=== PATIENT | male | born 1970 | race Caucasian/White ===

== ENCOUNTER 2018-07-23 14:08 | Emergency (ER) | payer OTHER ==
[2018-07-23 14:40] VITALS: BP 113/70; PULSE 70; TEMP 98.3; BMI 37.5
[2018-07-23] MEDS ORDERED: KETOROLAC TROMETHAMINE 30 MG/1 ML VIAL IM ONE (14:55)
[2018-07-23] MEDS ORDERED: KETOROLAC TROMETHAMINE 30 MG/1 ML VIAL ONE (15:03)
--- NOTE | 2018-07-23 15:04 | PDOC ---
History of Present Illness - General Chief Complaint: Pain Stated Complaint: RT FOOT PAIN Time Seen by Provider: 07/23/18 14:48 History Source: Patient Exam Limitations: Clinical Condition - History of Present Illness Initial Comments: 07/23/18 14:58 Patient with history of diabetes present with complaint of 6 months history of persistent pain to right Achilles tendon which is worse with ambulation. Patient reported he is being seen by podiatry for pain with use of NSAIDs back pain keep coming back and has been persistent. Patient denies any imaging done for symptoms. Patient denies any trauma or injuries to ankle or leg. Timing/Duration: other (6 months) Past History - Past Medical History Allergies/Adverse Reactions: Allergies Allergy/AdvReac Type Severity Reaction Status Date / Time cephalexin Allergy Verified 07/23/18 14:36 Home Medications: Ambulatory Orders Aripiprazole [Abilify] 5 mg PO DAILY 11/21/17 Armodafinil 150 mg PO DAILY 11/21/17 Bupropion HCl [Bupropion HCl Sr] 100 mg PO BID 11/21/17 Bupropion HCl [Bupropion Xl] 150 mg PO DAILY 11/21/17 Citalopram Hydrobromide [Citalopram HBr] 20 mg PO DAILY 11/21/17 Fenofibrate 200 mg PO AC 11/21/17 Insulin Glargine,Hum.rec.anlog [Basaglar Kwikpen U-100] 10 unit SQ HS 11/21/17 Naproxen Sodium 550 mg PO BID 11/21/17 metFORMIN HCL [Metformin HCl] 1,000 mg PO AC 11/21/17 Naproxen 500 mg PO BID PRN #30 tablet 07/23/18 COPD: No Diabetes: Yes - Suicide/Smoking/Psychosocial Hx Smoking History: Unknown if ever smoked Hx Alcohol Use: No Drug/Substance Use Hx: No Review of Systems - Review of Systems Able to Perform ROS?: Yes Is the patient limited Korean proficient: No Constitutional: No: Weakness HEENTM: No: Symptoms Reported Respiratory: No: Symptoms reported Cardiac (ROS): No: Symptoms Reported Musculoskeletal: Yes: See HPI, Joint Pain (posterior right ankle), Muscle Pain ( achilles tendon). No: Muscle Weakness, Joint Stiffness Neurological: No: Numbness, Paresthesia, Tingling, Weakness All Other Systems: Reviewed and Negative *Physical Exam - Vital Signs Last Vital Signs Temp Pulse Resp BP Pulse Ox 98.3 F 70 18 113/70 98 07/23/18 14:38 07/23/18 14:38 07/23/18 14:38 07/23/18 14:38 07/23/18 14:38 - Physical Exam Comments: 07/23/18 14:59 GENERAL: Well developed, well nourished. Awake and alert. No acute distress. CARDIOVASCULAR: Regular rate and rhythm. No murmurs, rubs, or gallops. PULMONARY: No evidence of respiratory distress. Lungs clear to auscultation bilaterally. No wheezing, rales or rhonchi. ABDOMINAL: Soft. Non-tender. Non-distended. No rebound or guarding. No organomegaly. Normoactive bowel sounds MUSCULOSKELETAL : Moderate point tenderness to posterior Achilles tendon of right ankle. Negative Olsen tests of right achilles. No bony deformities EXTREMITIES: No cyanosis. No clubbing. No edema. No calf tenderness. SKIN: Warm and dry. Normal capillary refill. No rashes. No jaundice. NEUROLOGICAL: Alert, awake, appropriate. No motor deficits in the lower extremities. Gait is normal without ataxia. PSYCHIATRIC: Cooperative. Good eye contact. Appropriate mood and affect. General Appearance: Yes: Nourished, Appropriately Dressed. No: Apparent Distress Moderate Sedation - Procedure Monitoring Vital Signs: Procedure Monitoring Vital Signs Temperature 98.3 F 07/23/18 14:38 Pulse Rate 70 07/23/18 14:38 Respiratory Rate 18 07/23/18 14:38 Blood Pressure 113/70 07/23/18 14:38 O2 Sat by Pulse Oximetry (%) 98 07/23/18 14:38 ED Treatment Course - RADIOLOGY Radiology Studies Ordered: Category Date Time Status ANKLE & FOOT-RIGHT* [RAD] Stat Radiology 07/23/18 14:54 Ordered Medical Decision Making - Medical Decision Making 07/23/18 15:02 Patient with history of diabetes present with complaint of since months with history of persistent right increased pain without trauma or injury. Exam significant for moderate point tenderness to right posterior Achilles tendon with negative Olsen's test. Symptoms likely tendon strain versus ruptured Achilles tendon. Later less likely due to negative Olsen's test of right Achilles tendon. X-ray of right ankle ordered. Patient be discharged home on NSAIDs with advised to rest ankle with orthopedist follow-up for possible MRI if negative x-ray. 07/23/18 15:18 X-ray of right ankle and foot shows small your spur and calcification of Achilles tendon insertion site. Patient is stable for discharge with postop boots and orthopedics follow-up with naproxen as needed for pain. *DC/Admit/Observation/Transfer Diagnosis at time of Disposition: Heel spur Qualifiers: Laterality: right Qualified Code(s): M77.31 - Calcaneal spur, right foot Achilles tendinitis Qualifiers: Laterality: right Qualified Code(s): M76.61 - Achilles tendinitis, right leg - Discharge Dispostion Disposition: HOME Condition at time of disposition: Stable Decision to Admit order: No - Prescriptions Prescriptions: Naproxen 500 mg PO BID PRN #30 tablet PRN Reason: pain - Referrals Referrals: Gonzalez Patel DO [Staff Physician] - - Patient Instructions Printed Discharge Instructions: DI for Achilles Tendinopathy Additional Instructions: Take prescribed naproxen as needed for pain. Follow-up referred orthopedics as soon as possible. Call today to make a follow-up on the with orthopedics for heel spur and calcification of the Achilles tendon insertion site. - Post Discharge Activity
== END 2018-07-23 15:41 | disposition home or self-care (01) ==
LOC: JERFT 14:08
PROC: 3E0233Z Introduction of Anti-inflammatory into Muscle, Percutaneous Approach (ICD-10-PCS; principal; 2018-07-23)
DX: M76.61 Achilles tendinitis, right leg (principal); M77.31 Calcaneal spur, right foot; E11.9 Type 2 diabetes mellitus without complications; Z79.4 Long term (current) use of insulin
CPT/HCPCS: 73610-TC-RT-FY; 73630-TC-RT-FY; 99281-25

== ENCOUNTER 2019-04-19 18:15 | Emergency (ER) | payer OTHER ==
--- NOTE | 2019-04-19 18:23 | PDOC ---
Rapid Medical Evaluation Time Seen by Provider: 04/19/19 18:21 Medical Evaluation: Allergies Allergy/AdvReac Type Severity Reaction Status Date / Time cephalexin Allergy Verified 07/23/18 14:36 04/19/19 18:23 I have performed a brief in-person evaluation of this patient. The patient presents with a chief complaint of: knee swelling Pertinent physical exam findings:stable and in NAD, non-focal I have ordered the following: provider to determine The patient will proceed to the ED for further evaluation.
[2019-04-19 18:24] VITALS: BP 135/81; PULSE 83; TEMP 98; BMI 36.5
--- NOTE | 2019-04-19 19:55 | PDOC ---
History of Present Illness - General Chief Complaint: Pain Stated Complaint: KNEE PAIN Time Seen by Provider: 04/19/19 18:21 History Source: Patient - History of Present Illness Initial Comments: 04/19/19 19:50 48 year old male s/p b/l quad tendon repair 09/2018 c/o knees buckling and fell today after being seen at [facility] ER for Knee pain. Right knee pain worse than left. patient report xray done at [facility] prior to the fall showed joint effusion, arthiritic changes. PMHX: diabetes, sleep apnea, hypertension, depression Ortho: Dr. Patel PCP: Maryan Crawford Past History - Past Medical History Allergies/Adverse Reactions: Allergies Allergy/AdvReac Type Severity Reaction Status Date / Time cephalexin Allergy Verified 04/19/19 18:24 Home Medications: Ambulatory Orders Aripiprazole [Abilify] 5 mg PO DAILY 11/21/17 Armodafinil 150 mg PO DAILY 11/21/17 Bupropion HCl [Bupropion HCl Sr] 100 mg PO BID 11/21/17 Bupropion HCl [Bupropion Xl] 150 mg PO DAILY 11/21/17 Citalopram Hydrobromide [Citalopram HBr] 20 mg PO DAILY 11/21/17 Fenofibrate 200 mg PO AC 11/21/17 Insulin Glargine,Hum.rec.anlog [Basaglar Kwikpen U-100] 10 unit SQ HS 11/21/17 Naproxen Sodium 550 mg PO BID 11/21/17 metFORMIN HCL [Metformin HCl] 1,000 mg PO AC 11/21/17 Naproxen 500 mg PO BID PRN #30 tablet 07/23/18 Oxycodone HCl/Acetaminophen [Percocet 5-325 mg Tablet] 1 - 2 tab PO Q6H PRN #7 tab MDD 4 04/19/19 COPD: No Diabetes: Yes HTN: Yes Other medical history: SLEEP APNEA - Psycho Social/Smoking Cessation Hx Smoking History: Never smoked Hx Alcohol Use: No Drug/Substance Use Hx: No Review of Systems - Review of Systems Able to Perform ROS?: Yes Is the patient limited Hungarian proficient: No Constitutional: No: Symptoms Reported, See HPI, Chills, Diaphoresis, Fever, Loss of Appetite, Malaise, Night Sweats, Weakness, Weight Stable, Unintentional Wgt. Loss, Unexplained wgt Loss, Other Musculoskeletal: Yes: Other (knee pain) *Physical Exam - Vital Signs Last Vital Signs Temp Pulse Resp BP Pulse Ox 98 F 83 18 135/81 98 04/19/19 18:19 04/19/19 18:19 04/19/19 18:19 04/19/19 18:19 04/19/19 18:19 - Physical Exam General Appearance: Yes: Appropriately Dressed Respiratory/Chest: positive: Lungs Clear, Normal Breath Sounds Cardiovascular: positive: Regular Rate Extremity: positive: Other (b/l knee able to leg raise and extent both knee, no swelling/ abrasion noted to both knees) Integumentary: positive: Normal Color, Dry, Warm Neurologic: positive: Fully Oriented, Alert ED Progress Note - Progress Note Progress Note: 04/20/19 06:08 A: b/l knee pain P: xray pain control outpatient ortho follow up Medical Decision Making - Medical Decision Making 04/19/19 21:[address] Patel recommends xray, pain control, knee immobilizer to one knee and outpatient follow up in the office tomorrow 04/19/19 22:59 patient is weightbearing. placed knee brace to right knee. patient was given crutches. patient prefers walker. pending taxi / ambulette home. Discharge - Discharge Information Problems reviewed: Yes Clinical Impression/Diagnosis: Chronic pain of both knees Condition: Good Disposition: HOME - Additional Discharge Information Prescriptions: Oxycodone HCl/Acetaminophen [Percocet 5-325 mg Tablet] 1 - 2 tab PO Q6H PRN #7 tab MDD 4 PRN Reason: Pain - Follow up/Referral Referrals: Deon Espinosa [Primary Care Provider] - Gonzalez Patel DO [Staff Physician] - Call tomorrow (please follow up in the office tomorrow at 11 am) - Patient Discharge Instructions Patient Printed Discharge Instructions: DI for Knee Pain Additional Instructions: please follow up with Dr. Patel in the office tomorrow you may take naproxen for pain as previously prescribed. take percocet for moderate pain ( do not drive or operate heavy machinery after taking this.) this medication can make you sleepy. return to the ER for any worsening symptoms. - Post Discharge Activity
== END 2019-04-20 01:44 | disposition home or self-care (01) ==
LOC: JER 18:15
DX: L23.9 Allergic contact dermatitis, unspecified cause (principal); E03.9 Hypothyroidism, unspecified; Z86.718 Personal history of other venous thrombosis and embolism; Z86.711 Personal history of pulmonary embolism
CPT/HCPCS: 73562-TC-LT-FY; 73562-TC-RT-FY; 99281-25